=== PATIENT | female | born 1955 | race Two or more races ===

== ENCOUNTER 2017-01-24 19:26 | Emergency (ER) | payer OTHER ==
--- NOTE | 2017-01-24 19:28 | PDOC ---
History of Present Illness - General History Source: Patient Exam Limitations: No Limitations - History of Present Illness Initial Comments: 01/24/17 20:13 The patient is a 61 year old female, with a significant past medical history of hypertension, who presents to the emergency department with intermittent fever, cough and right anterior rib pain for a week. The patient reports that she has had these cold-like symptoms for a week and has an associated productive cough with white sputum. She notes that she has not had a fever for about 3 days ago but states her anterior rib pain is becoming increasingly worse. She denies chest pain, shortness of breath, headache and dizziness. She denies nausea, vomit, diarrhea and constipation. 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 No tobacco or alcohol use. MEDICATIONS: reviewed PCP:Dr. Baljit Graham ALLERGIES: Shellfish, Watermelon General: +Intermittent fever No chills, no weakness, no weight loss HEENT: No change in vision. No sore throat,. No ear pain CardioVascular: No chest pain or shortness of breath Respiratory:+Cough No wheezing. Gastrointestinal: no nausea, vomiting, diarrhea or constipation, No rectal bleeding Genitourinary: No dysuria, hematuria, or frequency Musculoskeletal: +Right anterior rib pain No joint pain or swelling Neurologic: No headache, vertigo, dizziness or loss of consciousness Psychiatric: no depression Skin: No rashes or easy bruising Endocrine: no increased thirst or abnormal weight change Allergic: no skin or latex allergy All other systems reviewed and normal General: Well nourished well developed individual, no acute distress HEENT: Throat: Normal, tonsils normal, no erythema or exudate Neck: Supple, no meningeal signs, no lymphadenopathy Eyes:Pupils equal reactive and round, extraocular motion intact Chest: Nontender to palpation Cardiac: S1S2 normal, regular rate and rhythm, no murmurs rubs or gallops Respiratory: Lungs clear to auscultation bilateral. No crepitus. Abdomen: +Tender on palpation over right lower ribs. Soft, nondistended, normal bowel sounds, nontender to palpation diffusely Extremities: Warm, dry, no cyanosis, clubbing, or edema Skin: No rashes Neuro: Alert and oriented x3, nonfocal exam, grossly intact, normal gait Psych: Normal mood and affect 01/24/17 20:24 <Dionna Duque - Last Filed: 01/24/17 20:23> - General History Source: Patient Exam Limitations: No Limitations - History of Present Illness Initial Comments: 01/24/17 20:26 A portion of this note was documented by scribe services under my direction. I have reviewed the details of the note, within reason, and agree with the documentation. The case summary and management plan written by me. Chest x-ray reviewed by me no acute pathology, no rib fractures visible Assessment and plan: This is a 61-year-old female who is had approximately one week of intermittent cough and congestion. Patient had fever several days ago but none recently. Patient's cough is mostly nonproductive but occasionally white phlegm. Patient is complaining of pain in the area of her right lower ribs anteriorly. Pain is reproduced with palpation as well as when she coughs however when patient takes a deep breath she says it does not hurt. Patient had a chest x-ray that was negative Patient was given Toradol here in the emergency room told she can take anti- inflammatories or Tylenol for the pain and follow-up with her doctor in 3-4 days if not improved. <Luisito Baxter I - Last Filed: 01/24/17 20:28> - General Chief Complaint: Cold Symptoms Stated Complaint: FEVER/COUGH/RIB PAIN Past History <Dionna Duque - Last Filed: 01/24/17 20:23> - Past Medical History Asthma: No Cardiac Disorders: No CVA: No Diabetes: No HTN: Yes Suicide Attempt (Hx): No - Psycho/Social/Smoking Cessation Hx Anxiety: No Suicidal Ideation: No Smoking Status: No Smoking History: Unknown if ever smoked Number of Cigarettes Smoked Daily: 0 Hx Alcohol Use: No Drug/Substance Use Hx: No Substance Use Type: None <Luisito Baxter I - Last Filed: 01/24/17 20:28> - Past Medical History Allergies/Adverse Reactions: Allergies Allergy/AdvReac Type Severity Reaction Status Date / Time shellfish derived Allergy Intermediate Canker Verified 02/13/15 15:22 sores, runny nose Watermelon Allergy Mild Uncoded 02/13/15 15:22 Home Medications: Ambulatory Orders NK [No Known Home Medication] 01/24/17 *Physical Exam - Vital Signs Last Vital Signs Temp Pulse Resp BP Pulse Ox 98.8 F 89 16 143/89 100 01/24/17 19:28 01/24/17 19:28 01/24/17 19:28 01/24/17 19:28 01/24/17 19:28 <Dionna Duque - Last Filed: 01/24/17 20:23> ED Treatment Course - Medications Given in the ED: ED Medications Discontinued Medications Generic Name Dose Route Start Last Admin Trade Name Christian PRN Reason Stop Dose Admin Ketorolac Tromethamine 30 mg 01/24/17 19:34 01/24/17 19:38 Toradol Injection - IM 01/24/17 19:35 30 mg ONCE ONE Administration <Dionna Duque - Last Filed: 01/24/17 20:23> *DC/Admit/Observation/Transfer - Attestations Scribe Attestion: 01/24/17 20:14 Documentation prepared by INDRA Lara, acting as medical receptionist medical assistant for Luisito Baxter MD. <Dionna Duque - Last Filed: 01/24/17 20:23> - Discharge Dispostion Admit: No <Luisito Baxter I - Last Filed: 01/24/17 20:28> Diagnosis at time of Disposition: Anterior chest wall pain - Discharge Dispostion Disposition: HOME Condition at time of disposition: Stable - Referrals Referrals: Baljit Graham MD [Primary Care Provider] - - Patient Instructions Additional Instructions: Your x-ray was negative for any infection or rib fracture. For the pain take Tylenol or ibuprofen or Aleve as directed on the bottle. Return to the emergency department immediately with ANY new, persistent or worsening symptoms. Continue any medications as previously prescribed by your physician. You should follow up with your primary doctor as soon as possible regarding today's emergency department visit. . Please make sure your doctor reviews the results of your emergency evaluation. Thank you for coming to the Emergency Department today for your care. It was a pleasure to see you today. Please note that your evaluation is INCOMPLETE until you follow-up with your doctor.
[2017-01-24 19:30] VITALS: BP 143/89; PULSE 89; TEMP 98.8; BMI 20.2
[2017-01-24] MEDS ORDERED: KETOROLAC TROMETHAMINE 30 MG/1 ML VIAL IM ONE (19:34)
== END 2017-01-24 20:32 | disposition home or self-care (01) ==
LOC: FER 19:26
PROC: 3E0233Z Introduction of Anti-inflammatory into Muscle, Percutaneous Approach (ICD-10-PCS; principal; 2017-01-24)
DX: R07.89 Other chest pain (principal); I10 Essential (primary) hypertension
CPT/HCPCS: 71020-TC; 99282-25